=== PATIENT | female | born 1995 | race American Indian/Alaskan Native ===

== ENCOUNTER 2017-01-13 09:51 | Emergency (ER) | payer SELFPAY ==
[2017-01-13 09:59] VITALS: BP 133/61
--- NOTE | 2017-01-13 10:20 | Emergency Department Report ---
Chief Complaint: Vaginal Bleeding Stated Complaint: MISCARRIAGE - HPI History of Present Illness: 21-year-old female presents with complaint of vaginal bleeding and sharp lower abdominal pain, patient states she is likely . States she is having heavy vaginal bleeding and pain is worsening. Last menstrual period first week of November as per patient - ROS Review of Systems: Possible , crampy sharp lower abdominal pain - Exam Vital Signs: Vital Signs 01/13/17 01/13/17 09:58 10:04 Temperature 98.4 F 98.4 F Pulse Rate 94 H 94 H Respiratory 16 18 Rate Blood Pressure 133/61 Blood Pressure 133/61 [Right] O2 Sat by Pulse 100 100 Oximetry Physical Exam: Positive suprapubic pain, heart S1-S2 MSE screening note: Focused history and physical exam performed. Due to findings the following was ordered: Screening Assessment/Plan/Differential Dx: Rule out ectopic versus miscarriage 1- This initial assessment/diagnostic orders/clinical plan/ treatment(s) is/are subject to change based on pt's health status, clinical progression and re- assessment by fellow clinical providers in the ED. Further treatment and workup at subsequent clinical provers discretion. Patient/guardians urged not to elope from ED as their condition may be serious if not clinically assessed and managed. 2-ultrasound, urinalysis, hCG level, basic labs, type and screen ED Disposition for MSE Condition: Stable
[2017-01-13 11:01] LABS: Basophils % (Auto) 0.4 % (0.0-1.8); Hematocrit 36.2 % (30.3-42.9); Hemoglobin 11.1 gm/dl (10.1-14.3); Mean Corpuscular HGB Conc 31 % (30-34); Mean Corpuscular Hemoglobin 22 pg (28-32); Mean Corpuscular Volume 71 fl (79-97); Platelet Count 230 K/mm3 (140-440); Red Blood Count 5.07 M/mm3 (3.65-5.03); Red Cell Distribution Width 15.8 % (13.2-15.2); White Blood Count 9.6 K/mm3 (4.5-11.0)
[2017-01-13 11:21] LABS: Anion Gap 18 mmol/L; Blood Urea Nitrogen 12 mg/dL (7-17); Calcium 9.2 mg/dL (8.4-10.2); Carbon Dioxide 25 mmol/L (22-30); Chloride 102.3 mmol/L (98-107); Glucose 92 mg/dL (65-100); Potassium 3.7 mmol/L (3.6-5.0); Sodium 142 mmol/L (137-145)
[2017-01-13 11:39] LABS: Bacteria,Urine 1+ /HPF (Negative); Bilirubin,Urine NEG (Negative); Blood,Urine LG (Negative); Ketones,Urine NEG (Negative); Leukocyte Esterase,Urine NEG (Negative); Mucus,Urine FEW /HPF; Nitrite,Urine NEG (Negative); Urobilinogen,Urine < 2.0 mg/dL (<2.0)
[2017-01-13 11:43] LABS: RBC,Urine > 182.0 /HPF (0.0-6.0)
--- NOTE | 2017-01-13 13:07 | Ultrasound Report ---
ULTRASOUND OB LESS THAN 14 WEEKS - TRANSABDOMINAL AND TRANSVAGINAL INDICATION: Heavy vaginal bleeding, lower abdominal cramping. Evaluate for ectopic . Serum beta-hCG of 19.5 units. COMPARISON: None similar during this gestation. FINDINGS: Transabdominal and transvaginal pelvic sonography performed in this patient with LMP of 11/27/2016 and estimated menstrual age of 6 weeks and 5 days and EDC of 09/03/2017. A retroverted 9.4 x 5 x 4.9 cm uterus demonstrates a heterogeneous endometrium thickened to approximately 2.7 cm toward the fundus as on endovaginal image 8. No evidence of a viable intrauterine gestation. Minimal fluid seen in the cervical canal. Minimal free fluid in the cul-de-sac as well. Right ovary is 2.9 x 1.9 x 2.2 cm while the left ovary is 3.4 x 1.7 x 3 cm. Numerous small follicular cysts also noted measuring up to 1.8 cm on the right and 1.4 cm on the left. CONCLUSION: 1. No sonographic evidence of a viable intrauterine gestation at this time with heterogeneous, thickened endometrium noted, as described. 2. Both ovaries identified, as above. Please also correlate clinically for accuracy of the LMP and with followup serum beta-hCG values, as warranted. Thank you for the opportunity to participate in this patient's care.
== END 2017-01-13 18:48 | disposition left against medical advice (07) ==
LOC: ED 09:51
DX: O20.9 Hemorrhage in early pregnancy, unspecified (principal); Z3A.08 8 weeks gestation of pregnancy; Z53.21 Procedure and treatment not carried out due to patient leaving prior to being seen by health care provider
CPT/HCPCS: 36415; 76801; 76817; 80048; 81001; 84702; 85025; 86850; 86900; 86901; 87086